=== PATIENT | female | born 1995 | race Caucasian/White ===

== ENCOUNTER 2022-07-11 12:08 | Outpatient (CLI) | payer OTHER, SELFPAY | END 2022-07-11 12:09 | disposition home or self-care (01) | LOC: ANHLAB 12:16 | PROVIDERS: Visit Provider Advanced Practice Midwife | DX: O20.0 Threatened abortion (principal); Z3A.00 Weeks of gestation of pregnancy not specified | CPT/HCPCS: 36415; 84702 ==

== ENCOUNTER 2022-07-13 13:43 | Outpatient (CLI) | payer OTHER, SELFPAY | END 2022-07-13 13:44 | disposition home or self-care (01) | PROVIDERS: Visit Provider Advanced Practice Midwife | DX: O20.0 Threatened abortion (principal); Z3A.00 Weeks of gestation of pregnancy not specified | CPT/HCPCS: 36415; 84702 ==

== ENCOUNTER 2022-12-20 09:06 | Outpatient (CLI) | payer OTHER, SELFPAY ==
[2022-12-20 12:00] LABS: Hematocrit 36.9 % (37.0-47.0); Hemoglobin 12.1 g/dL (12.0-15.0)
[2022-12-20 12:13] LABS: Glucose 1 Hour PP 50gm Dose 107 mg/dL
[2022-12-20 12:51] LABS: HIV 1/2 Ab P24 Ag Result Negative (Negative)
[2022-12-22] MEDS: RHO(D) IMMUNE GLOBULIN 300 MCG/2 ML SYRINGE IM (11:08)
== END 2022-12-20 09:07 | disposition home or self-care (01) ==
LOC: ANHLAB 09:08
PROVIDERS: PCP Physician Assistant Medical; Visit Provider Advanced Practice Midwife
DX: Z36.89 Encounter for other specified antenatal screening (principal); O36.0130 Maternal care for anti-D [Rh] antibodies, third trimester, not applicable or unspecified; Z3A.00 Weeks of gestation of pregnancy not specified
CPT/HCPCS: 36415; 82947; 85014; 85018; 85461; 86703; 86850; 86900; 86901; 90384; 96372; G0432; J2790

== ENCOUNTER 2023-01-22 16:09 | Observation (INO) | payer OTHER, SELFPAY ==
[2023-01-22] VITALS (11 sets, daily range): BP systolic 117–132; BP diastolic 79–86; PULSE 80–89; TEMP 36.8; O2SAT 96–97
--- NOTE | 2023-01-22 16:15 | PC.NURSE ---
Pt. arrives from OB office for Pre-eclampsia workup due to elevated bp in office. G!P0, 33weeks, edc 03/12/23. Pt. report good movement, denies leaking of fluid or bleeding, visual changes noted last friday, hypothyroidism - 125 mcg of synthroid taken daily.
[2023-01-22] MEDS: BETAMETHASONE SOD PHOS/ACETATE 30 MG/5 ML VIAL 12 MG IM (16:38)
[2023-01-22 17:05] LABS: Basophils Percent Auto 0.3 % (0.2-1.2); Eosinophils Absolute Auto 0.5 K/mm3 (0-0.3); Eosinophils Percent Auto 3.5 % (0-4.4); Hemoglobin 10.6 g/dL (12.0-15.0); Immature Granulocyte Absolute 0.12 K/mm3 (0.00-0.031); Immature Granulocyte Percent A 0.8 % (0-0.5); Lymphocytes Absolute Auto 2.38 K/mm3 (0.9-3.2); Lymphocytes Percent Auto 16.9 % (18.3-44.2); Mean Corpuscular HGB Conc 32.1 g/dl (32-36); Mean Corpuscular Hemoglobin 28.8 pg (26-34); Mean Corpuscular Volume 89.7 fl (80-100); Mean Platelet Volume 10.5 fl (7.4-10.4); Monocytes Absolute Auto 1.1 K/mm3 (0.1-0.6); Monocytes Percent Auto 7.4 % (2.6-8.5); Neutrophils Percent Auto 71.1 % (45.5-73.1); Platelet Count Result 326 k/mm3 (150-375); Red Blood Count 3.68 M/mm3 (4.2-5.4); Red Cell Distribution Width 13.4 % (11.5-14.5); White Blood Count 14.1 K/mm3 (4.5-10.0)
[2023-01-22 17:20] LABS: Alanine Aminotransferase 20 U/L (6-35); Albumin Level 3.2 g/dL (3.5-5.1); Alkaline Phosphatase 118 U/L (38-126); Anion Gap 2 mmol/L (8-16); Aspartate Amino Transferase 28 U/L (14-36); Bilirubin,Total 0.3 mg/dL (0.2-1.3); Blood Urea Nitrogen 13 mg/dL (7-17); Calcium 8.7 mg/dL (8.4-10.2); Carbon Dioxide 24 mmol/L (22-30); Chloride 107 mmol/L (98-107); Estimated Glomerular Filt Rate 60; Glucose 108 mg/dL (65-110); Potassium 4.1 mmol/L (3.4-5.0); Sodium 133 mmol/L (137-145); Uric Acid 7.7 mg/dL (2.5-7.5)
--- NOTE | 2023-01-22 17:49 | PC.NURSE ---
Xi PATEL at bedside for evaluation and to discuss plan of care. Strip reviewed by Cnm, moderate variability with 15x15, irregular ctx - not felt, no pain. labs reviewed with meghanam. orders received for discharge with follow up in office this week. Pt also to return to [facility] tomorrow around 1630 for second celestone injection. Pt. acknowledges understanding.
--- NOTE | 2023-01-23 08:04 | P.PNOB_ITS ---
OB - Triage/Final Diagnosis Visit Information Date of evaluation: 01/22/23 Reason for evaluation: other (preeclampsia) Comments/Additional reasons for admission: I have assessed the risk for this patient, Vee Barahona, and determined that she would benefit from observation care. Evaluation Laboratory results: Laboratory Tests 01/22/23 16:25 WBC 14.1 H RBC 3.68 L Hgb 10.6 L Hct 33.0 L MCV 89.7 MCH 28.8 MCHC 32.1 RDW 13.4 Plt Count 326 MPV 10.5 H Immature Gran % (Auto) 0.8 H Neut % (Auto) 71.1 Lymph % (Auto) 16.[address] [place] % (Auto) 7.4 Eos % (Auto) 3.5 Baso % (Auto) 0.3 Lymph # (Auto) 2.38 [place] # (Auto) 1.1 H Eos # (Auto) 0.5 H Baso # (Auto) 0.0 Abs Immat Gran (auto) 0.12 H Absolute Neuts (auto) 10.0 H Absolute Nucleated RBC 0.0 Nucleated RBC % 0.0 Sodium 133 L Potassium 4.1 Chloride 107 Carbon Dioxide 24 Anion Gap 2 L BUN 13 Creatinine 1.10 H Estim Creat Clear Calc Not Reportable Estimated GFR 60 Glucose 108 Uric Acid 7.7 H Calcium 8.7 Total Bilirubin 0.3 AST 28 ALT 20 Alkaline Phosphatase 118 Total Protein 7.0 Albumin 3.2 L Vital signs: Vital Signs - 24 hr 01/22/23 16:15 01/22/23 16:16 01/22/23 16:20 Temperature Pulse Rate 87 86 Blood Pressure 132/82 122/79 Pulse Oximetry 97 96 01/22/23 16:30 01/22/23 16:45 01/22/23 17:00 Temperature Pulse Rate 83 89 89 Blood Pressure 117/86 119/83 126/84 Pulse Oximetry 01/22/23 17:15 01/22/23 17:30 01/22/23 17:45 Temperature Pulse Rate 82 81 80 Blood Pressure 125/85 120/80 124/81 Pulse Oximetry 01/22/23 18:01 01/22/23 17:20 Temperature 36.8 C Pulse Rate 84 Blood Pressure 121/79 Pulse Oximetry
== END 2023-01-22 18:06 | disposition home or self-care (01) ==
LOC: ANHOBOP 16:17 → ANHOBPP 16:17
PROVIDERS: Advanced Practice Midwife; Admitting Provider Obstetrics & Gynecology; PCP Physician Assistant Medical; Visit Provider Obstetrics & Gynecology
DX: O14.93 Unspecified pre-eclampsia, third trimester (principal); Z3A.33 33 weeks gestation of pregnancy; E03.9 Hypothyroidism, unspecified
CPT/HCPCS: 36415; 80053; 84550; 85025; 96372; G0378; G0379; J0702

== ENCOUNTER 2023-01-23 17:24 | Outpatient (CLI) | payer OTHER, SELFPAY ==
--- NOTE | 2023-01-23 17:52 | PC.NURSE ---
Pt here for Celestone, but concerned her BP may be elevated because her cheeks are flushed. BP 126/80.
[2023-01-23] MEDS: BETAMETHASONE SOD PHOS/ACETATE 30 MG/5 ML VIAL 12 MG IM (17:55)
== END 2023-01-23 17:25 | disposition home or self-care (01) ==
LOC: ANHOBOP 17:36
PROVIDERS: PCP Physician Assistant Medical; Visit Provider Obstetrics & Gynecology
DX: Z34.90 Encounter for supervision of normal pregnancy, unspecified, unspecified trimester (principal); Z3A.00 Weeks of gestation of pregnancy not specified
CPT/HCPCS: 96372; J0702

== ENCOUNTER 2023-02-08 10:23 | Inpatient (IN) | payer OTHER, SELFPAY ==
[2023-02-08] VITALS (18 sets, daily range): BP systolic 113–141; BP diastolic 74–103; PULSE 72–88; RESP 16; TEMP 36.6; BMI 39.5; BMI 39.4
--- NOTE | ~2023-02-08 | US_ITS ---
EXAMINATION: US OB limited w BPP DATE: 02/08/2023 18:51 INDICATION: CHRISTIANE and BPP for Preeclampsia and FHR decelerations . TECHNIQUE: Real-time ultrasound of the pelvis was performed. COMPARISON: None. FINDINGS: There is a single living fetus in vertex presentation, longitudinal lie. The placenta is anterior. T he cervix was obscured. heart rate is 132 bpm. The amniotic fluid index is 15 cm, which is norm al (5th to 95th percentile is 7.9 to 24.9 cm). Biophysical profile performed by the technologist: breathing (30 sec sustained breathing in 30 minutes): 2 out of 2. movement (3 gross body movements in 30 minutes: 2 out of 2. tone (one episode of bugmmra-vebtcpqet-yqpmgnk limb movement): 2 out of 2. Amniotic fluid pocket (2 cm): 2 out of 2. Total score: 8 out of 8. IMPRESSION: Single living fetus in vertex presentation. Biophysical profile 8 out of 8. Normal CHRISTIANE. Reviewed, dictated and finalized at location K.
--- NOTE | 2023-02-08 11:57 | PC.NURSE ---
Madhu Barba CNM informed of this 35 3/7 wk pt here for NST's for preeclampsia. Informed of BP's, FHT's 140 and a 3 1/2- 4 min prolonged decel down to 120 noted, and subtle late decels noted at beginning of tracing. Pt denies headache, visual disturbance, epigastric/RUQ pain. 1+ pitting in lower legs. DTR's 1+ and no clonus. Order received for labs. Requested CNM to pull up tracing at home.
--- NOTE | 2023-02-08 12:40 | PC.NURSE ---
Madhu Barba CNM on unit and in to see pt. AMANDA has reviewed monitor tracing and spoke with Dr. Saleh. Pt to stay overnight with monitoring and repeat labs 6 hrs after current labs.
[2023-02-08 13:03] LABS: Basophils Absolute Auto 0.1 K/mm3 (0.0-0.1); Basophils Percent Auto 0.6 % (0.2-1.2); Eosinophils Absolute Auto 0.3 K/mm3 (0-0.3); Eosinophils Percent Auto 2.1 % (0-4.4); Hematocrit 37.3 % (37.0-47.0); Hemoglobin 12.1 g/dL (12.0-15.0); Immature Granulocyte Absolute 0.08 K/mm3 (0.00-0.031); Immature Granulocyte Percent A 0.6 % (0-0.5); Lymphocytes Absolute Auto 2.72 K/mm3 (0.9-3.2); Lymphocytes Percent Auto 20.8 % (18.3-44.2); Mean Corpuscular HGB Conc 32.4 g/dl (32-36); Mean Corpuscular Hemoglobin 28.5 pg (26-34); Mean Corpuscular Volume 87.8 fl (80-100); Mean Platelet Volume 10.6 fl (7.4-10.4); Monocytes Absolute Auto 1.1 K/mm3 (0.1-0.6); Monocytes Percent Auto 8.5 % (2.6-8.5); Neutrophils Absolute Auto 8.8 K/mm3 (1.3-6.7); Neutrophils Percent Auto 67.4 % (45.5-73.1); Platelet Count Result 332 k/mm3 (150-375); Red Blood Count 4.25 M/mm3 (4.2-5.4); Red Cell Distribution Width 14.2 % (11.5-14.5); White Blood Count 13.1 K/mm3 (4.5-10.0)
[2023-02-08 13:11] LABS: Alanine Aminotransferase 12 U/L (6-35); Albumin Level 3.1 g/dL (3.5-5.1); Alkaline Phosphatase 168 U/L (38-126); Anion Gap 5 mmol/L (8-16); Aspartate Amino Transferase 22 U/L (14-36); Bilirubin,Total 0.3 mg/dL (0.2-1.3); Blood Urea Nitrogen 19 mg/dL (7-17); Calcium 8.7 mg/dL (8.4-10.2); Carbon Dioxide 20 mmol/L (22-30); Chloride 109 mmol/L (98-107); Estimated Glomerular Filt Rate 54; Glucose 89 mg/dL (65-110); Potassium 4.4 mmol/L (3.4-5.0); Sodium 134 mmol/L (137-145); Uric Acid 8.8 mg/dL (2.5-7.5)
--- NOTE | 2023-02-08 14:13 | OBADM ---
This patient, Vee Barahona, admitted to the OB room 115 for observation for preeclampsia and FHR decelerations at 35 3/7 wks. Patient/family oriented to hospital policies and general routines including ID bracelet, bed and alarms, visiting hours, pain management, procedures, bathroom and other care routines, personal items, smoking policy, room service/diet, and visiting hours. Patient/Family are encouraged to report perceived risks to care and to ask questions if they do not understand what they are told or what they should do.
[2023-02-08 19:27] LABS: Basophils Absolute Auto 0.1 K/mm3 (0.0-0.1); Basophils Percent Auto 0.7 % (0.2-1.2); Eosinophils Absolute Auto 0.3 K/mm3 (0-0.3); Eosinophils Percent Auto 2.1 % (0-4.4); Hematocrit 39.8 % (37.0-47.0); Hemoglobin 12.6 g/dL (12.0-15.0); Immature Granulocyte Absolute 0.06 K/mm3 (0.00-0.031); Immature Granulocyte Percent A 0.5 % (0-0.5); Lymphocytes Absolute Auto 3.23 K/mm3 (0.9-3.2); Lymphocytes Percent Auto 24.6 % (18.3-44.2); Mean Corpuscular HGB Conc 31.7 g/dl (32-36); Mean Corpuscular Hemoglobin 28.3 pg (26-34); Mean Corpuscular Volume 89.4 fl (80-100); Mean Platelet Volume 10.2 fl (7.4-10.4); Monocytes Absolute Auto 1.1 K/mm3 (0.1-0.6); Monocytes Percent Auto 8.1 % (2.6-8.5); Neutrophils Absolute Auto 8.4 K/mm3 (1.3-6.7); Platelet Count Result 359 k/mm3 (150-375); Red Blood Count 4.45 M/mm3 (4.2-5.4); Red Cell Distribution Width 14.1 % (11.5-14.5); White Blood Count 13.2 K/mm3 (4.5-10.0)
[2023-02-08] MEDS: LACTATED RINGERS 1,000 ML 125 ML IV CONT (19:36)
[2023-02-08 19:37] LABS: Alanine Aminotransferase 13 U/L (6-35); Albumin Level 3.5 g/dL (3.5-5.1); Alkaline Phosphatase 180 U/L (38-126); Anion Gap 4 mmol/L (8-16); Aspartate Amino Transferase 25 U/L (14-36); Bilirubin,Total 0.4 mg/dL (0.2-1.3); Blood Urea Nitrogen 20 mg/dL (7-17); Calcium 9.5 mg/dL (8.4-10.2); Carbon Dioxide 24 mmol/L (22-30); Chloride 106 mmol/L (98-107); Estimated CRCL calculation 58 ml/min; Estimated Glomerular Filt Rate 45; Glucose 90 mg/dL (65-110); Potassium 4.1 mmol/L (3.4-5.0); Sodium 134 mmol/L (137-145); Uric Acid 9.1 mg/dL (2.5-7.5)
--- NOTE | 2023-02-08 22:01 | LDADM ---
This patient, Vee Barahona, was admitted to OB Post 115 on 02/08/23 at 10:23. Plans for labor, pain management and were discussed with patient. Patient/family oriented to hospital policies and general routines including ID bracelet, bed and alarms, visiting hours, pain management, procedures, bathroom and other care routines, personal items, smoking policy, room service/diet and guest tray routines, infant security routines, and visiting hours. Patient/Family are encouraged to report perceived risks to care and to ask questions if they do not understand what they are told or what they should do. See OBIX for further documentation.
[2023-02-09] VITALS (67 sets, daily range): BP systolic 87–136; BP diastolic 35–96; PULSE 68–100; RESP 14–18; TEMP 35.8–36.9; O2SAT 96–100
[2023-02-09] MEDS: LEVOTHYROXINE SODIUM 125 MCG TABLET PO (07:20)
[2023-02-09] MEDS: MULTIVIT/MIN/PREN/FOL AC/IRON TABLET 1 TAB PO (07:21)
[2023-02-09 07:50] LABS: Hematocrit 36.2 % (37.0-47.0); Hemoglobin 11.5 g/dL (12.0-15.0); Mean Corpuscular HGB Conc 31.8 g/dl (32-36); Mean Corpuscular Hemoglobin 28.4 pg (26-34); Mean Corpuscular Volume 89.4 fl (80-100); Mean Platelet Volume 10.2 fl (7.4-10.4); Platelet Count Result 331 k/mm3 (150-375); Red Blood Count 4.05 M/mm3 (4.2-5.4); Red Cell Distribution Width 14.2 % (11.5-14.5); White Blood Count 11.5 K/mm3 (4.5-10.0)
[2023-02-09 07:59] LABS: Alanine Aminotransferase 12 U/L (6-35); Albumin Level 2.9 g/dL (3.5-5.1); Alkaline Phosphatase 157 U/L (38-126); Anion Gap 4 mmol/L (8-16); Aspartate Amino Transferase 21 U/L (14-36); Bilirubin,Total 0.3 mg/dL (0.2-1.3); Blood Urea Nitrogen 22 mg/dL (7-17); Calcium 8.4 mg/dL (8.4-10.2); Carbon Dioxide 22 mmol/L (22-30); Chloride 108 mmol/L (98-107); Estimated CRCL calculation 58 ml/min; Estimated Glomerular Filt Rate 45; Glucose 83 mg/dL (65-110); Potassium 4.3 mmol/L (3.4-5.0); Sodium 134 mmol/L (137-145)
[2023-02-09] MEDS: DINOPROSTONE 10 MG VAG INSERT VAGINAL (08:59)
--- NOTE | 2023-02-09 09:05 | PM.OBPNLAB ---
Pain Control Date/time seen: 02/09/23 09:05 pt was observed overnight, complicated by hypothyroidism, and preeclampsia without severe features. labs stable, blood pressures elevated 120-130/80-90's. heart rate has been 130-140 baseline with occasional late and prolonged decelerations, moderate variability, resolves with position change. pt is having irregular contractions, mild to palpation Pelvic Exam Dilation (cm): 1 Effacement (%): 50 station: -2 Amniotic membrane status: Intact Assessment and Plan Comments: preeclampsia without severe features non reassuring heart rate status discussed with pt and poc reviewed with dr. woodard, co-managing care discussed possible section if needed and pt questions answered pt had betamethasone x 2 last week will proceed with cervidil induction
[2023-02-09] MEDS: AMPICILLIN 2 GM/NS 100 ML 2 GM/100 ML BAG IVPB (09:21)
[2023-02-09] MEDS: LACTATED RINGERS 1,000 ML 125 ML IV CONT ×2 (09:46→11:02)
--- NOTE | 2023-02-09 09:54 | WPDANESEPP ---
Anes - Eval Pre Procedure Procedure: Labor Epidural Date/Time: 02/09/23 09:54 Surgeon: Therese Preop Diagnosis: Labor Pain Pre Op Diagnosis: Pre-eclampsia Patient Data Age: 27 Gender: F Height: 1.55 m Weight: 94.8 kg Last Vital Signs Temp 36.6 C 02/08/23 23:38 Pulse 78 02/09/23 09:46 Resp 16 02/08/23 23:38 BP 129/81 02/09/23 09:46 O2 Del Method Room Air 02/08/23 14:10 Allergies Allergy/AdvReac Type Severity Reaction Status Date / Time No Known Allergies Allergy Verified 01/22/23 16:18 Home Medications Medication Instructions Recorded Confirmed Type vitamin gummie 1 tablet BYMOUTH DAILY 08/30/22 02/08/23 History levothyroxine 125 mcg tablet 125 mcg PO DAILY 12/26/22 02/08/23 History Laboratory Tests 02/08/23 02/08/23 02/08/23 12:53 12:55 19:12 WBC 13.1 H K/mm3 13.2 H K/mm3 (4.5-10.0) (4.5-10.0) RBC 4.25 M/mm3 4.45 M/mm3 (4.2-5.4) (4.2-5.4) Hgb 12.1 g/dL 12.6 g/dL (12.0-15.0) (12.0-15.0) Hct 37.3 % 39.8 % (37.0-47.0) (37.0-47.0) MCV 87.8 fl 89.4 fl (80-100) (80-100) MCH 28.5 pg 28.3 pg (26-34) (26-34) MCHC 32.4 g/dl 31.7 L g/dl (32-36) (32-36) RDW 14.2 % 14.1 % (11.5-14.5) (11.5-14.5) Plt Count 332 k/mm3 359 k/mm3 (150-375) (150-375) MPV 10.6 H fl 10.2 fl (7.4-10.4) (7.4-10.4) Immature Gran % (Auto) 0.6 H % 0.5 % (0-0.5) (0-0.5) Neut % (Auto) 67.4 % 64.0 % (45.5-73.1) (45.5-73.1) Lymph % (Auto) 20.8 % 24.6 % (18.3-44.2) (18.3-44.2) [place] % (Auto) 8.5 % 8.1 % (2.6-8.5) (2.6-8.5) Eos % (Auto) 2.1 % 2.1 % (0-4.4) (0-4.4) Baso % (Auto) 0.6 % 0.7 % (0.2-1.2) (0.2-1.2) Lymph # (Auto) 2.72 K/mm3 3.23 H K/mm3 (0.9-3.2) (0.9-3.2) [place] # (Auto) 1.1 H K/mm3 1.1 H K/mm3 (0.1-0.6) (0.1-0.6) Eos # (Auto) 0.3 K/mm3 0.3 K/mm3 (0-0.3) (0-0.3) Baso # (Auto) 0.1 K/mm3 0.1 K/mm3 (0.0-0.1) (0.0-0.1) Abs Immat Gran (auto) 0.08 H K/mm3 0.06 H K/mm3 (0.00-0.031) (0.00-0.031) Absolute Neuts (auto) 8.8 H K/mm3 8.4 H K/mm3 (1.3-6.7) (1.3-6.7) Absolute Nucleated RBC 0.0 K/mm3 0.0 K/mm3 (0.0-0.012) (0.0-0.012) Nucleated RBC % 0.0 % 0.0 % (0.0-0.2) (0.0-0.2) Sodium 134 L mmol/L 134 L mmol/L (137-145) (137-145) Potassium 4.4 mmol/L 4.1 mmol/L (3.4-5.0) (3.4-5.0) Chloride 109 H mmol/L 106 mmol/L (98-107) (98-107) Carbon Dioxide 20 L mmol/L 24 mmol/L (22-30) (22-30) Anion Gap 5 L mmol/L 4 L mmol/L (8-16) (8-16) BUN 19 H mg/dL 20 H mg/dL (7-17) (7-17) Creatinine 1.20 H mg/dL 1.40 H mg/dL (0.7-1.0) (0.7-1.0) Estim Creat Clear Calc Not Reportable 58 ml/min Estimated GFR 54 L 45 L (59 - ) (59 - ) Glucose 89 mg/dL 90 mg/dL (65-110) (65-110) Uric Acid 8.8 H mg/dL 9.1 H mg/dL (2.5-7.5) (2.5-7.5) Calcium 8.7 mg/dL 9.5 mg/dL (8.4-10.2) (8.4-10.2) Total Bilirubin 0.3 mg/dL 0.4 mg/dL (0.2-1.3) (0.2-1.3) AST 22 U/L 25 U/L (14-36) (14-36) ALT 12 U/L 13 U/L (6-35) (6-35) Alkaline Phosphatase 168 H U/L 180 H U/L (38-126) (38-126) Total Protein 7.0 g/dL 7.0 g/dL (6.3-8.2) (6.3-8.2) Albumin 3.1 L g/dL 3.5 g/dL (3.5-5.1) (3.5-5.1) RPR Blood Type O Negative Antibody Screen Positive Antibody Identification Pending Antigen Identification Pending CHRIS, IgG Interpret Pending CHRIS, Poly Interpret Pending CHRIS, Complement Interp Pending 02/09/23 02/09/23 07:12 07:47 WBC 11.5 H K/mm3 (4.5-10.0) RBC 4.05 L M/mm3 (4.2-5.4) Hgb 11.5 L g/dL (12.0-15.0) Hct 36.2 L % (37.0-47.0) MCV 89.4 fl (80-100) MCH 28.4 pg
[2023-02-09] MEDS: AZITHROMYCIN 500 MG/NS 250 ML 500 MG/250 ML BAG 250 MG IVPB (10:28)
[2023-02-09] MEDS: ceFAZolin 2 GM/D5W 50 ML 2 GM/50 ML BAG IVPB (10:38)
[2023-02-09] MEDS: ONDANSETRON INJ 4 MG/2 ML VIAL IV PUSH (10:45)
--- NOTE | 2023-02-09 10:54 | WPDANESEPPF ---
Anes - Initial Pre Proc Eval Procedure: Operation Date: 02/09/23 10:45 Proposed Procedures p Section - Misbah Saleh MD Date/Time: 02/09/23 10:54 Surgeon: Misbah Saleh MD Pre Op Diagnosis: Pre-eclampsia Patient Data Age: 27 Gender: F Height: 1.55 m Weight: 94.8 kg Last Vital Signs Temp 36.2 C L 02/09/23 10:18 Pulse 79 02/09/23 10:16 Resp 16 02/08/23 23:38 BP 136/93 H 02/09/23 10:16 O2 Del Method Room Air 02/08/23 14:10 Allergies Allergy/AdvReac Type Severity Reaction Status Date / Time No Known Allergies Allergy Verified 01/22/23 16:18 Home Medications Medication Instructions Recorded Confirmed Type vitamin gummie 1 tablet BYMOUTH DAILY 08/30/22 02/08/23 History levothyroxine 125 mcg tablet 125 mcg PO DAILY 12/26/22 02/08/23 History Laboratory Tests 02/08/23 02/08/23 02/08/23 12:53 12:55 19:12 WBC 13.1 H K/mm3 13.2 H K/mm3 (4.5-10.0) (4.5-10.0) RBC 4.25 M/mm3 4.45 M/mm3 (4.2-5.4) (4.2-5.4) Hgb 12.1 g/dL 12.6 g/dL (12.0-15.0) (12.0-15.0) Hct 37.3 % 39.8 % (37.0-47.0) (37.0-47.0) MCV 87.8 fl 89.4 fl (80-100) (80-100) MCH 28.5 pg 28.3 pg (26-34) (26-34) MCHC 32.4 g/dl 31.7 L g/dl (32-36) (32-36) RDW 14.2 % 14.1 % (11.5-14.5) (11.5-14.5) Plt Count 332 k/mm3 359 k/mm3 (150-375) (150-375) MPV 10.6 H fl 10.2 fl (7.4-10.4) (7.4-10.4) Immature Gran % (Auto) 0.6 H % 0.5 % (0-0.5) (0-0.5) Neut % (Auto) 67.4 % 64.0 % (45.5-73.1) (45.5-73.1) Lymph % (Auto) 20.8 % 24.6 % (18.3-44.2) (18.3-44.2) [place] % (Auto) 8.5 % 8.1 % (2.6-8.5) (2.6-8.5) Eos % (Auto) 2.1 % 2.1 % (0-4.4) (0-4.4) Baso % (Auto) 0.6 % 0.7 % (0.2-1.2) (0.2-1.2) Lymph # (Auto) 2.72 K/mm3 3.23 H K/mm3 (0.9-3.2) (0.9-3.2) [place] # (Auto) 1.1 H K/mm3 1.1 H K/mm3 (0.1-0.6) (0.1-0.6) Eos # (Auto) 0.3 K/mm3 0.3 K/mm3 (0-0.3) (0-0.3) Baso # (Auto) 0.1 K/mm3 0.1 K/mm3 (0.0-0.1) (0.0-0.1) Abs Immat Gran (auto) 0.08 H K/mm3 0.06 H K/mm3 (0.00-0.031) (0.00-0.031) Absolute Neuts (auto) 8.8 H K/mm3 8.4 H K/mm3 (1.3-6.7) (1.3-6.7) Absolute Nucleated RBC 0.0 K/mm3 0.0 K/mm3 (0.0-0.012) (0.0-0.012) Nucleated RBC % 0.0 % 0.0 % (0.0-0.2) (0.0-0.2) Sodium 134 L mmol/L 134 L mmol/L (137-145) (137-145) Potassium 4.4 mmol/L 4.1 mmol/L (3.4-5.0) (3.4-5.0) Chloride 109 H mmol/L 106 mmol/L (98-107) (98-107) Carbon Dioxide 20 L mmol/L 24 mmol/L (22-30) (22-30) Anion Gap 5 L mmol/L 4 L mmol/L (8-16) (8-16) BUN 19 H mg/dL 20 H mg/dL (7-17) (7-17) Creatinine 1.20 H mg/dL 1.40 H mg/dL (0.7-1.0) (0.7-1.0) Estim Creat Clear Calc Not Reportable 58 ml/min Estimated GFR 54 L 45 L (59 - ) (59 - ) Glucose 89 mg/dL 90 mg/dL (65-110) (65-110) Uric Acid 8.8 H mg/dL 9.1 H mg/dL (2.5-7.5) (2.5-7.5) Calcium 8.7 mg/dL 9.5 mg/dL (8.4-10.2) (8.4-10.2) Total Bilirubin 0.3 mg/dL 0.4 mg/dL (0.2-1.3) (0.2-1.3) AST 22 U/L 25 U/L (14-36) (14-36) ALT 12 U/L 13 U/L (6-35) (6-35) Alkaline Phosphatase 168 H U/L 180 H U/L (38-126) (38-126) Total Protein 7.0 g/dL 7.0 g/dL (6.3-8.2) (6.3-8.2) Albumin 3.1 L g/dL 3.5 g/dL (3.5-5.1) (3.5-5.1) RPR Blood Type O Negative Antibody Screen Positive Antibody Identification Passive Due to RH Imm Glob Antigen Identification Cancelled CHRIS, IgG Interpret Not Performed CHRIS, Poly Interpret Negative CHRIS, Complement Interp Not Performed 02/09/23 02/09/23 07:12 07:47 WBC 11.5 H K/mm3 (4.5-10.0) RBC 4.05 L M/mm3 (4.2-5.4) Hgb 11.5
--- NOTE | 2023-02-09 11:21 | W.PM.PROC2 ---
Procedure Note - Detailed Date of Procedure 02/09/23 Pre-op Diagnosis Pre-eclampsia, Non- reassuring FHT's Post-op Diagnosis Same Procedure Performed Low-transverse section Surgeon Misbah Saleh MD Anesthesia Spinal Indications During heart tones, preeclampsia Findings Normal gestational maternal anatomy, average size , normal Apgars. Nuchal cord Description of Procedure The patient was taken the operating room. She was prepped and draped in dorsal supine position with a leftward tilt. This was done after spinal anesthetic was applied. A low-transverse skin incision was made and carried down till of the fascia with the knife. The fascial incision was made with the knife. The fascial incision was extended laterally with Barreto scissors. The fascia was tented upward superiorly and inferiorly the rectus muscles were dissected off bluntly. The rectus muscles were the midline. The preperitoneal fat and peritoneum were dissected open bluntly at the superior aspect of the rectus muscles. The peritoneal incision was extended superior and inferior with good position of bladder. The uterine incision was made with a scalpel down to the level of the amniotic cavity. The amniotic cavity was entered bluntly. The infant was delivered. The cord was clamped and cut and the infant was handed off to waiting pediatric staff. Cord bloods were obtained. The placenta was removed manually. The uterus was exteriorized. The uterus was cleared of all clots, debris and membranes. The uterus was closed in 0 Vicryl running lock fashion. An imbricating over a was placed along the incision line as well. The uterus was returned to the abdomen. The gutters were cleared of all clots and debris. The fascia was closed with 0 Vicryl running fashion. The subcutaneous tissue was irrigated pinpoint bleeders were cauterized. The skin was closed with subcuticular absorbable deny. The skin incision line was covered with glue. The patient tolerated the procedure well. She has taken recovery room in stable condition. Sponge lap and needle counts were correct x2. Urine Output 600 Complications No immediate complications Condition Stable Disposition PACU
[2023-02-09] MEDS: OXYTOCIN 30 UNITS/NS 500 ML 30 UNITS/500 ML BAG 125 UNITS IV CONT (13:43)
--- NOTE | 2023-02-09 13:48 | PC.NURSE ---
Patient transferred to post room #284 via stretcher. Support person present. Oriented to unit, room, information board, rooming in, admission packet and security measures. Patient verbalizes understanding.
[2023-02-09] MEDS: KETOROLAC 30 MG/ML VIAL (*BKC) IV PUSH ×2 (14:49→23:49)
[2023-02-09] MEDS: DEXTROSE 5%/0.45% SOD CHL 1,000 ML 125 ML IV CONT (18:05)
[2023-02-09] MEDS: HYDROcodone/acetaminophen (*CRX) 5-325 MG TABLET 1 TAB PO ×2 (18:56→23:48)
[2023-02-09] MEDS: SIMETHICONE 80 MG TAB.CHEW PO (23:49)
[2023-02-10 04:10] VITALS: BP 120/87; PULSE 87; RESP 16; TEMP 36.8; O2SAT 97
[2023-02-10] MEDS: SIMETHICONE 80 MG TAB.CHEW PO ×2 (04:18→14:58)
[2023-02-10] MEDS: HYDROcodone/acetaminophen (*CRX) 5-325 MG TABLET 1 TAB PO ×4 (04:18→20:34)
[2023-02-10 05:04] LABS: Basophils Percent Auto 0.3 % (0.2-1.2); Eosinophils Absolute Auto 0.2 K/mm3 (0-0.3); Eosinophils Percent Auto 1.2 % (0-4.4); Hematocrit 31.3 % (37.0-47.0); Hemoglobin 9.8 g/dL (12.0-15.0); Immature Granulocyte Absolute 0.06 K/mm3 (0.00-0.031); Immature Granulocyte Percent A 0.4 % (0-0.5); Lymphocytes Absolute Auto 2.43 K/mm3 (0.9-3.2); Lymphocytes Percent Auto 16.9 % (18.3-44.2); Mean Corpuscular HGB Conc 31.3 g/dl (32-36); Mean Corpuscular Hemoglobin 28.2 pg (26-34); Mean Corpuscular Volume 89.9 fl (80-100); Mean Platelet Volume 10.3 fl (7.4-10.4); Monocytes Absolute Auto 0.9 K/mm3 (0.1-0.6); Monocytes Percent Auto 5.9 % (2.6-8.5); Neutrophils Absolute Auto 10.9 K/mm3 (1.3-6.7); Neutrophils Percent Auto 75.3 % (45.5-73.1); Platelet Count Result 299 k/mm3 (150-375); Red Blood Count 3.48 M/mm3 (4.2-5.4); Red Cell Distribution Width 14.3 % (11.5-14.5); White Blood Count 14.4 K/mm3 (4.5-10.0)
--- NOTE | 2023-02-10 07:31 | P.PNOB_ITS ---
OB - PN: Subj Subjective Date/time seen: 02/10/23 07:31 Interval history: baby level 2, due to blood sugars pt doing well some incisional soreness, otherwise no complaints flatus present OB - PN: Obj Data Labs 02/10/23 04:22 02/09/23 07:12 Labs: Laboratory Results - last 24 hr 02/08/23 02/09/23 02/10/23 12:53 07:12 04:22 WBC 11.5 H 14.4 H RBC 4.05 L 3.48 L Hgb 11.5 L 9.8 L Hct 36.2 L 31.3 L MCV 89.4 89.9 MCH 28.4 28.2 MCHC 31.8 L 31.3 L RDW 14.2 14.3 Plt Count 331 299 MPV 10.2 10.3 Immature Gran % (Auto) 0.4 Neut % (Auto) 75.3 H Lymph % (Auto) 16.9 L [place] % (Auto) 5.9 Eos % (Auto) 1.2 Baso % (Auto) 0.3 Lymph # (Auto) 2.43 [place] # (Auto) 0.9 H Eos # (Auto) 0.2 Baso # (Auto) 0.0 Abs Immat Gran (auto) 0.06 H Absolute Neuts (auto) 10.9 H Absolute Nucleated RBC 0.0 Nucleated RBC % 0.0 Sodium 134 L Potassium 4.3 Chloride 108 H Carbon Dioxide 22 Anion Gap 4 L BUN 22 H Creatinine 1.40 H Estim Creat Clear Calc 58 Estimated GFR 45 L Glucose 83 Uric Acid 9.0 H Calcium 8.4 Total Bilirubin 0.3 AST 21 ALT 12 Alkaline Phosphatase 157 H Total Protein 6.0 L Albumin 2.9 L Blood Type O Negative Antibody Screen Positive Antibody Identification Passive Due to RH Imm Glob Antigen Identification Cancelled CHRIS, IgG Interpret Not Performed CHRIS, Poly Interpret Negative CHRIS, Complement Interp Not Performed OB - PN A/P Plan day: 1 Plan: routine care Time Spent With Patient Time: Total time spent is greater than 50% in coordination of care (as documented) at patient's floor/unit and/or counseling patient: Review of Systems Review of Systems: All systems reviewed & are unremarkable except as noted in HPI and below Exam 2 Const: General: cooperative, healthy appearing and comfortable Chest: Chest palpation & inspection: normal inspection of the chest Resp: Effort & Inspection: normal respiratory effort Cardio: Rate: regular rate Rhythm: regular rhythm GI: Other: Incision CDI Skin: General skin exam: normal color Neuro: General: patient oriented x3 Extrem: Right lower extremity: normal to inspection Left lower extremity: normal to inspection Psych: Appearance: grossly normal
[2023-02-10 08:10] VITALS: BP 121/89; PULSE 80; RESP 16; TEMP 36.3; O2SAT 100
[2023-02-10] MEDS: MULTIVIT/MIN/PREN/FOL AC/IRON TABLET 1 TAB PO (08:34)
[2023-02-10] MEDS: DOCUSATE SODIUM 100 MG CAPSULE PO ×2 (08:34→14:57)
[2023-02-10] MEDS: POLYSACCHARIDE IRON COMPLEX 150 MG CAPSULE PO ×2 (08:34→17:31)
[2023-02-10] MEDS: IBUPROFEN 600 MG TABLET PO ×3 (08:35→20:34)
--- NOTE | 2023-02-10 10:54 | WPDANLDPN2 ---
Anes-Prog Note L&D Date/Time: 02/10/23 10:54 Comfortable throughout: section Neuraxial method: spinal Epidural/Spinal procedure site: clean & non-tender Neuro status: Neuro function grossly intact. Cardiovascular status: normal Respiratory status: normal Airway patency: baseline Mental status: baseline Post-Op hydration status: normal Vital Signs: Last Vital Signs Temp 36.3 C L 02/10/23 08:10 Pulse 80 02/10/23 08:10 Resp 16 02/10/23 08:10 BP 121/89 02/10/23 08:10 Pulse Ox 100 02/10/23 08:10 O2 Del Method Room Air 02/09/23 13:25 Pain score (VAS): 3 I/O: Intake & Output 02/09/23 02/10/23 02/10/23 23:59 07:59 15:59 Intake Total 1250 1200 800 Output Total 250 1850 Balance 1000 -650 800 Post-procedural complaints: none Patient feedback: Patient satisfied with anesthetic care.
--- NOTE | 2023-02-10 10:55 | WPDANLDNPN2 ---
Anes-Prog Note L&D-Neuraxial Date/Time: 02/10/23 10:55 Neuraxial medications: intrathecal PF morphine Opiod-related complaints: none Patient feedback: Patient satisfied with post-operative pain management.
[2023-02-10 12:00] VITALS: BP 110/76; PULSE 82; RESP 16; TEMP 36.3; O2SAT 99
[2023-02-10 12:40] LABS: Rapid Plasma Reagin Non-Reactive (NonReactive)
[2023-02-10 16:15] VITALS: BP 119/86; PULSE 99; RESP 16; TEMP 36.6; O2SAT 100
[2023-02-10 19:45] VITALS: BP 117/87; PULSE 102; RESP 16; TEMP 36.8; O2SAT 99
[2023-02-11] VITALS: BP 126/93; PULSE 102; RESP 18; TEMP 36.9; O2SAT 100
[2023-02-11] MEDS: HYDROcodone/acetaminophen (*CRX) 5-325 MG TABLET 1 TAB PO ×2 (01:50→07:22)
[2023-02-11 04:00] VITALS: BP 118/88; PULSE 97; RESP 14; TEMP 36.8; O2SAT 100
[2023-02-11] MEDS: POLYSACCHARIDE IRON COMPLEX 150 MG CAPSULE PO (07:22)
[2023-02-11] MEDS: MULTIVIT/MIN/PREN/FOL AC/IRON TABLET 1 TAB PO (07:22)
[2023-02-11] MEDS: IBUPROFEN 600 MG TABLET PO (07:23)
[2023-02-11] MEDS: DOCUSATE SODIUM 100 MG CAPSULE PO (07:23)
[2023-02-11 07:30] VITALS: BP 126/91; PULSE 100; RESP 18; TEMP 37.3
--- NOTE | 2023-02-11 08:15 | PM.OBPNVD ---
OB - PN: Subj Subjective Date/time seen: 02/11/23 08:15 Interval history: baby level 2, due to blood sugars pt doing well some incisional soreness, otherwise no complaints flatus present Patient comments: no complaints, pain well controlled, incisional pain, tolerating diet and flatus present OB - PN: Obj Data Labs 02/10/23 04:22 02/09/23 07:12 Labs: Laboratory Results - last 24 hr 02/09/23 07:47 RPR Non-reactive OB - PN A/P Plan day: 2 Plan: routine care Comments: POD#2 LTCS - no problems, Time Spent With Patient Time: Total time spent is greater than 50% in coordination of care (as documented) at patient's floor/unit and/or counseling patient: Exam Const: General: comfortable, no acute distress and alert Resp: Effort & Inspection: normal respiratory effort Auscultation: no crackles, no rales and no rhonchi Cardio: Rate: regular rate Heart sounds: no click, no murmurs and no rubs GI: Inspection: non-distended Auscultation: normal bowel sounds Other: Incision - CDI Extrem: General: normal to inspection, no pedal edema and no calf tenderness
--- NOTE | 2023-02-11 08:15 | PM.OBDSVD ---
DS: Admitting Diagnosis Discharge Date 02/11/23 Admitting Diagnosis cholestasis of DS: Discharge Diagnosis Discharge Diagnosis (1) Preeclampsia: Code(s): O14.90 - Unspecified pre-eclampsia, unspecified trimester Status: Acute OB - DS: Summary OB Procedures : NST and PIH Mgmt OB Procedures Intrapartum: OB Procedures: : None Peripartum Data Procedures: Procedures Operation Date: 02/09/23 10:45 Actual Procedure Side Surgeon p Section Not Applicable Misbah Saleh MD Time Spent with Patient Time attestation: Total time spent providing and/or coordinating discharge services: DS: Data Data Completed and Pending Pending studies at discharge: Pending at discharge 02/09/23 12:11 Surgical [PTH] Routine Labs on day of discharge: Labs from last 24 hours 02/09/23 07:47 RPR Non-reactive Discharge Plan Discharge Discharging Clinician: Misbah Saleh Patient Disposition: Home, Self-Care Activity: pelvic rest Diet: regular Patient Instructions: Antibiotic Form Stand Alone Forms: General Discharge Information Follow-up/Referrals: Misbah Saleh MD [Physician] - Discharge Medications: New oxycodone-acetaminophen 5-325 mg tablet 1 tablet PO Q4H PRN (Reason: pain) Qty: 25 0RF Continued vitamin gummie 1 tablet BYMOUTH DAILY levothyroxine 125 mcg tablet 125 mcg PO DAILY Date of admission: 02/09/23 07:57 Primary Care Provider: Vita Nixon I. Admitting Provider: Misbah Saleh Attending physician on admission: Misbah Saleh Condition: Stable
[2023-02-12 08:07] VITALS: BP 124/88; PULSE 101; RESP 18; TEMP 37.1; O2SAT 100
--- NOTE | 2023-03-02 21:09 | PM.IMHP ---
H&P: HPI History of Present Illness Date/Time: 03/02/23 21:09 Chief Complaint: nonreassuring heart tones Narrative: 27-year-old female 1 in the 3rd trimester with preeclampsia. Induction of labor has progressed to a point. There is nonreassuring heart heart tones. to proceed with . She understands risk. She understands that injuries may occur that results in hospitalization, more surgery, and severe levels. She understands there is risk of hemorrhage infection. She denies any nausea, vomiting, fever, chills. She denies any chest pain or shortness of breath Review of Systems Review of Systems: All systems reviewed & are unremarkable except as noted in HPI and below Constitutional: Constitutional: Denies chills, Denies fatigue, Denies fever(s) and Denies weakness Eyes: Eyes: Denies blurry vision, Denies change in vision, Denies loss of peripheral vision, Denies loss of vision, Denies other visual disturbances and Denies eye pain ENT: Denies vertigo, Denies dizziness, Denies hearing loss, Denies mouth pain, Denies nasal obstruction, Denies neck mass and Denies neck pain Cardiovascular: Cardiovascular: Denies chest pain, Denies diaphoresis, Denies syncope, Denies leg edema and Denies dyspnea Respiratory: Respiratory: Denies chest congestion, Denies cough, Denies hemoptysis, Denies dyspnea and Denies wheezing Gastrointestinal: Gastrointestinal: Denies abdominal pain, Denies constipation, Denies diarrhea, Denies nausea and Denies vomiting Genitourinary: Genitourinary: Denies hematuria, Denies change in libido, Denies nocturia, Denies genital lesions, Denies flank pain and Denies urinary urgency Musculoskeletal: Musculoskeletal: Denies abnormal gait, Denies back pain, Denies myalgias, Denies arthralgias, Denies joint swelling, Denies muscle weakness and Denies neck pain Integumentary/Breasts: Skin/Breast: Denies swelling, Denies breast pain, Denies breast mass, Denies dry skin, Denies nipple discharge, Denies unusual bruising and Denies jaundice Neurologic: Denies Neuro-related abnormal movements, Denies Abnormal speech present, Denies abnormal gait, Denies behavioral changes, Denies confusion, Denies vertigo, Denies dizziness, Denies syncope, Denies loss of vision, Denies memory loss, Denies convulsions and Denies weakness Psychiatric: Psychiatric: Denies abnormal sleep pattern, Denies behavioral changes, Denies change in libido, Denies confusion, Denies depression, Denies anhedonia and Denies memory loss Endocrine: Endocrine: Reports no additional endocrine complaints, Denies change in libido and Denies fatigue Hematologic/Lymphatic: Hematologic/Lymphatic: Reports no additional hematologic/lymphatic complaints Allergic/Immunologic: Allergic/Immunologic: Reports no additional allergic/immunologic complaints and Denies wheezing PMFSH Past Medical History Medical History Hypothyroidism Periodic health assessment, general screening, adult Surgical History Surgical History No pertinent past surgical history Family History Family History Mother Asthma Thyroid disease Grandparent Cancer Diabetes mellitus Thyroid disease Social History Social History Smoking status: Current every day smoker Tobacco type: e-cigarettes/vaping Second hand tobacco smoke exposure: No Substance use: never Lack of Transportation: No Lack of Food: Never True Current Housing: I Have Housing Concerned About Future Housing: No Difficulty Paying Gas/Electric Bills: No Difficulty Paying for Meds: No Currently Unemployed: No Education: High School Diploma/GED Difficulty w/ Childcare or Family Care: No Living arrangements: with family Occupation/Education: occupation Gender
== END 2023-02-11 10:25 | disposition home or self-care (01) | DRG 788 ==
LOC: ANHLDR 13:28 → ANHOBPP 14:02 → ANHLDR 02-09 08:12 → ANHOB2 02-09 13:50
PROVIDERS: Advanced Practice Midwife; Admitting Provider Obstetrics & Gynecology; PCP Physician Assistant Medical; Visit Provider Obstetrics & Gynecology
PROC: 10D00Z1 Extraction of Products of Conception, Low, Open Approach (ICD-10-PCS; CPT 59514; principal; 2023-02-09 10:45)
DX: O14.94 Unspecified pre-eclampsia, complicating childbirth (principal); Z37.0 Single live birth; Z3A.35 35 weeks gestation of pregnancy; O69.81X0 Labor and delivery complicated by cord around neck, without compression, not applicable or unspecified; O36.8330 Maternal care for abnormalities of the fetal heart rate or rhythm, third trimester, not applicable or unspecified; O99.284 Endocrine, nutritional and metabolic diseases complicating childbirth; E03.9 Hypothyroidism, unspecified
CPT/HCPCS: 36415; 76815; 76819; 80053; 84550; 85025; 85027; 86592; 86850; 86880; 86900; 86901; 86902; 88307; A9270; G0378; G0379; J0290; J0456; J0690; J1885; J2274; J2405; J2590; J7120

== ENCOUNTER 2023-02-08 10:23 | Outpatient (RCR) | payer OTHER, SELFPAY ==
[2023-01-25 11:01] VITALS: BP 120/81
[2023-02-01 07:53] VITALS: BP 128/91; PULSE 81
--- NOTE | 2023-02-08 12:24 | PM.IMHP ---
H&P: HPI History of Present Illness Date/Time: 02/08/23 12:24 Chief Complaint: pt here for an NST for preeclampsia without severe features. currently denies headache, visual changes and epigastric pain. Blood pressures are not severe range. late declerations noted with a prolonged deceleration. CNM at bs to review. currently category 1 with rare contractions Review of Systems Review of Systems: All systems reviewed & are unremarkable except as noted in HPI and below PMFSH Past Medical History Medical History (Updated 02/08/23 @ 12:32 by Xi Barba CNM) Hypothyroidism Periodic health assessment, general screening, adult Surgical History Surgical History (Updated 08/30/22 @ 09:03 by Anne Guadarrama MA) No pertinent past surgical history Family History Family History (Updated 08/30/22 @ 09:06 by Anne Guadarrama MA) Mother Asthma Thyroid disease Grandparent Cancer Diabetes mellitus Thyroid disease Social History Social History (Updated 08/30/22 @ 09:26 by Anne Guadarrama MA) Smoking status: Never smoker Substance use: never Lack of Transportation: No Lack of Food: Never True Current Housing: I Have Housing Concerned About Future Housing: No Difficulty Paying Gas/Electric Bills: No Difficulty Paying for Meds: No Currently Unemployed: No Education: High School Diploma/GED Difficulty w/ Childcare or Family Care: No Living arrangements: with family Occupation/Education: occupation Gender identity (if verbalized by the patient): Female Meds Home Medications and Allergies Home Medications Medication Instructions Recorded Confirmed Type vitamin gummie 1 tablet BYMOUTH DAILY 08/30/22 01/22/23 History levothyroxine 125 mcg tablet 125 mcg PO DAILY 12/26/22 01/22/23 History Allergies Allergy/AdvReac Type Severity Reaction Status Date / Time No Known Allergies Allergy Verified 01/22/23 16:18 Exam Const: General: cooperative Chest: Chest palpation & inspection: normal inspection of the chest Resp: Effort & Inspection: normal respiratory effort Cardio: Rate: regular rate Rhythm: regular rhythm Skin: General skin exam: normal color Neuro: General: patient oriented x3 Extrem: Right lower extremity: edema (2+) Left lower extremity: edema (2+) Assessment and Plan Assessment and plan (1) Preeclampsia: Code(s): O14.90 - Unspecified pre-eclampsia, unspecified trimester Status: Acute Plan 1. preeclampsia without severe features plan to continue to monitor blood pressure repeat labs discussed poc with dr. woodard
== END 2023-03-20 11:26 | disposition home or self-care (01) ==
LOC: ANHOBOP 10:23
PROVIDERS: PCP Physician Assistant Medical; Visit Provider Advanced Practice Midwife
DX: O14.93 Unspecified pre-eclampsia, third trimester (principal); Z3A.33 33 weeks gestation of pregnancy; Z3A.34 34 weeks gestation of pregnancy
CPT/HCPCS: 59025

== ENCOUNTER 2023-02-14 11:00 | Inpatient (IN) | payer OTHER, SELFPAY ==
[2023-02-14 11:15] VITALS: BP 135/91; PULSE 94; TEMP 37; BMI 38.2
--- NOTE | 2023-02-14 11:15 | OBADM ---
This patient, Vee Barahona, admitted to the OB room OB Post 113 for observation. Patient/family oriented to hospital policies and general routines including ID bracelet, bed and alarms, visiting hours, pain management, procedures, bathroom and other care routines, personal items, smoking policy, room service/diet, and visiting hours. Patient/Family are encouraged to report perceived risks to care and to ask questions if they do not understand what they are told or what they should do.
--- NOTE | 2023-02-14 11:56 | PC.NURSE ---
Wound care here to see patient. Plan of care discussed.
--- NOTE | 2023-02-14 12:25 | PC.NURSE ---
Dr Saleh on unit, discussed moving patient to medical floor per Wound care request. agreeable.
--- NOTE | 2023-02-14 13:28 | PC.NURSE ---
Report called to [address] [place] [address]. Keila AGUILAR.
--- NOTE | 2023-02-14 13:43 | PC.NURSE ---
[id number] To [facility].
[2023-02-14 14:00] VITALS: BP 135/82; PULSE 89; RESP 16; TEMP 37.3; O2SAT 98
[2023-02-14 14:30] VITALS: PULSE 89; RESP 16; TEMP 37.3; O2SAT 98
[2023-02-14] MEDS: HYDROmorphone HCL INJ (*CRX) 1 MG/ML SYR IV PUSH (15:08)
[2023-02-14 15:59] VITALS: BMI 38.2
--- NOTE | 2023-02-14 16:01 | ADMGEN ---
This patient, Vee Barahona, was admitted to [facility] Surg Room 328-01 at 1350. Patient/family oriented to hospital policies and general routines including ID bracelet, bed and alarms, visiting hours, pain management, procedures, bathroom and other care routines, personal items, smoking policy, room service/diet, and visiting hours. Information on how to activate the Rapid Response Team has been discussed. Patient/Family are encouraged to report perceived risks to care and to ask questions if they do not understand what they are told or what they should do.
[2023-02-14 19:41] VITALS: PULSE 89; RESP 16; O2SAT 98
[2023-02-14 21:17] VITALS: BP 143/94; PULSE 101; RESP 13; TEMP 36.8; O2SAT 97
[2023-02-14] MEDS: HYDROcodone/acetaminophen (*CRX) 5-325 MG TABLET 1 TAB PO (21:52)
[2023-02-15 05:33] VITALS: BP 133/94; PULSE 86; RESP 12; TEMP 36.2; O2SAT 99
[2023-02-15 09:05] VITALS: BP 128/93; PULSE 97; O2SAT 97
[2023-02-15] MEDS: HYDROcodone/acetaminophen (*CRX) 5-325 MG TABLET 1 TAB PO ×4 (09:09→22:02)
--- NOTE | 2023-02-15 10:08 | PM.IMHP ---
H&P: HPI History of Present Illness Date/Time: 02/15/23 10:08 Chief Complaint: Bleeding at incision site Narrative: this patient is a 27-year-old female who is postop day 5-6 from a delivery. She presented to the office yesterday complaining of bleeding at her incision site. The incision was examined. Add defect in the skin could easily be made in the central portion of the incision. There was hematoma under the skin. The glue was removed. The remainder of the scan could easily be . Willards were cut and the skin was opened entirely. Within the subcutaneous tissue a hematoma around the complete length of the subcutaneous operative space. The clot was removed. The skin was cleaned , as was the wound bed. the defect was packed with wet gauze. It was covered with an ABD. The patient was asked to present to the medical floor for wound care consult. There was no evidence of infection at the incision site. She denies any nausea, vomiting, fever, chills. She denies any chest pain shortness of breath. no tenderness at the incision site Review of Systems Review of Systems: All systems reviewed & are unremarkable except as noted in HPI and below Constitutional: Constitutional: Denies chills, Denies fatigue, Denies fever(s) and Denies weakness Eyes: Eyes: Denies blurry vision, Denies change in vision, Denies loss of peripheral vision, Denies loss of vision, Denies other visual disturbances and Denies eye pain ENT: Denies vertigo, Denies dizziness, Denies hearing loss, Denies mouth pain, Denies nasal obstruction, Denies neck mass and Denies neck pain Cardiovascular: Cardiovascular: Denies chest pain, Denies diaphoresis, Denies syncope, Denies leg edema and Denies dyspnea Respiratory: Respiratory: Denies chest congestion, Denies cough, Denies hemoptysis, Denies dyspnea and Denies wheezing Gastrointestinal: Gastrointestinal: Denies abdominal pain, Denies constipation, Denies diarrhea, Denies nausea and Denies vomiting Genitourinary: Genitourinary: Denies hematuria, Denies change in libido, Denies nocturia, Denies genital lesions, Denies flank pain and Denies urinary urgency Musculoskeletal: Musculoskeletal: Denies abnormal gait, Denies back pain, Denies myalgias, Denies arthralgias, Denies joint swelling, Denies muscle weakness and Denies neck pain Integumentary/Breasts: Skin/Breast: Denies swelling, Denies breast pain, Denies breast mass, Denies dry skin, Denies nipple discharge, Denies unusual bruising and Denies jaundice Neurologic: Denies Neuro-related abnormal movements, Denies Abnormal speech present, Denies abnormal gait, Denies behavioral changes, Denies confusion, Denies vertigo, Denies dizziness, Denies syncope, Denies loss of vision, Denies memory loss, Denies convulsions and Denies weakness Psychiatric: Psychiatric: Denies abnormal sleep pattern, Denies behavioral changes, Denies change in libido, Denies confusion, Denies depression, Denies anhedonia and Denies memory loss Endocrine: Endocrine: Reports no additional endocrine complaints, Denies change in libido and Denies fatigue Hematologic/Lymphatic: Hematologic/Lymphatic: Reports no additional hematologic/lymphatic complaints Allergic/Immunologic: Allergic/Immunologic: Reports no additional allergic/immunologic complaints and Denies wheezing PMFSH Past Medical History Medical History Hypothyroidism Periodic health assessment, general screening, adult Surgical History Surgical History No pertinent past surgical history Family History Family History Mother Asthma Thyroid disease Grandparent Cancer Diabetes mellitus Thyroid disease Social History Social History Smoking status: Former smoker Tobacco type: cigarettes and e-ci
[2023-02-15 13:50] VITALS: BP 129/92
[2023-02-15 14:00] VITALS: BP 129/92; PULSE 101; RESP 14; TEMP 36.7; O2SAT 99
[2023-02-15 21:56] VITALS: BP 130/97; PULSE 81; RESP 20; TEMP 36.8; O2SAT 98
[2023-02-16 06:00] VITALS: BP 117/94; PULSE 82; RESP 20; TEMP 36.4; O2SAT 98
[2023-02-16] MEDS: HYDROcodone/acetaminophen (*CRX) 5-325 MG TABLET 1 TAB PO ×3 (08:07→18:27)
--- NOTE | 2023-02-16 09:53 | PM.OBPNVD ---
OB - PN: Subj Subjective Date/time seen: 02/16/23 09:53 Interval history: no complaints, no problems, no foul-smelling vaginal discharge, no fever, no nausea and no vomiting OB - PN A/P Assessment and Plan (1) Hematoma of surgical wound following section: Code(s): O90.2 - Hematoma of obstetric wound Status: Acute Plan looking to complete the management of the wound VAC and inpatient wound management tomorrow. No other complaints, no other problems, her baby is doing better at the intensive care unit. Time Spent With Patient Time: Total time spent is greater than 50% in coordination of care (as documented) at patient's floor/unit and/or counseling patient: Exam Const: General: cooperative, healthy appearing, comfortable and no acute distress Orientation/consciousness: oriented to person, oriented to place and oriented to time HENMT: Head: normal to inspection Ears: external ears normal Face/Nose/Sinus: Normal external nose present and normal facial exam Face and sinus: normal facial exam Eyes: General: appearance normal, both eyes and all related structures Neck: Neck: normal visual inspection, trachea midline and supple Resp: Auscultation: clear to auscultation bilaterally, no crackles, no rales, no rhonchi and no wheezes Cardio: Rate: regular rate Rhythm: regular rhythm Heart sounds: no click, no murmurs and no rubs GI: GI Palp: No abdominal tenderness, No Soft to palpation, No Tenderness to palpation present (GI) and No Palpable mass present Auscultation: normal bowel sounds Skin: General skin exam: normal color and no rashes or lesions noted Neuro: General: oriented to person, oriented to place and oriented to time Extrem: General: normal to inspection, no joint enlargement, no clubbing, cyanosis or edema, no pedal edema and no calf tenderness Psych: Appearance: grossly normal Mental Status: mental status grossly normal Speech and movement: Normal speech and movement present
[2023-02-16 14:00] VITALS: BP 126/87; PULSE 83; RESP 16; TEMP 36.9; O2SAT 99
[2023-02-16 20:00] VITALS: O2SAT 99
[2023-02-16 21:53] VITALS: BP 130/93; PULSE 93; RESP 16; TEMP 36.7; O2SAT 99
[2023-02-17 05:55] VITALS: BP 128/86; PULSE 95; RESP 18; TEMP 36.6; O2SAT 98
[2023-02-17] MEDS: HYDROcodone/acetaminophen (*CRX) 5-325 MG TABLET 1 TAB PO ×3 (07:07→15:49)
--- NOTE | 2023-02-17 10:33 | PM.OBPNVD ---
OB - PN: Subj Subjective Date/time seen: 02/17/23 10:33 Interval history: no complaints, no problems, no foul-smelling vaginal discharge, no fever, no nausea and no vomiting wound vac in place and pt doing well, awaiting on insurance for follow up coverage so pt can be d/c'd home baby doing well in the NICU OB - PN A/P Assessment and Plan (1) Hematoma of surgical wound following section: Code(s): O90.2 - Hematoma of obstetric wound Status: Acute Assessment and Plan: continue in-patient management pt will be allowed to be discharged home after wound vac arrangements are finalized (2) Post-op pain: Code(s): G89.18 - Other acute postprocedural pain Status: Acute Time Spent With Patient Time: Total time spent is greater than 50% in coordination of care (as documented) at patient's floor/unit and/or counseling patient: Review of Systems Review of Systems: All systems reviewed & are unremarkable except as noted in HPI and below Exam Const: General: cooperative Chest: Chest palpation & inspection: normal inspection of the chest Resp: Effort & Inspection: normal respiratory effort GI: Other: wound vac in place, no drainage, no redness Skin: General skin exam: normal color Neuro: General: patient oriented x3 Extrem: Right lower extremity: normal to inspection Left lower extremity: normal to inspection
[2023-02-17 13:59] VITALS: BP 117/84; PULSE 93; RESP 16; TEMP 36.2; O2SAT 98
[2023-02-17 21:39] VITALS: BP 121/85; PULSE 82; RESP 18; TEMP 36.3; O2SAT 100
[2023-02-18 05:55] VITALS: BP 125/89; PULSE 91; RESP 18; TEMP 36.1; O2SAT 99
--- NOTE | 2023-02-18 13:03 | PM.OBPNVD ---
OB - PN: Subj Subjective Date/time seen: 02/18/23 13:03 no complaints, no problems, no foul-smelling vaginal discharge, no fever, no nausea and no vomiting wound vac in place and pt doing well, awaiting on insurance for follow up coverage so pt can be d/c'd home baby doing well in the NICU Wound care as cleared the patient for discharge. Will discharged directly. Interval history: OB - PN A/P Assessment and Plan (1) Hematoma of surgical wound following section: Code(s): O90.2 - Hematoma of obstetric wound Status: Acute Plan no complaints, no problems, no foul-smelling vaginal discharge, no fever, no nausea and no vomiting wound vac in place and pt doing well, awaiting on insurance for follow up coverage so pt can be d/c'd home baby doing well in the NICU Wound care as cleared the patient for discharge. Will discharged directly. Time Spent With Patient Time: Total time spent is greater than 50% in coordination of care (as documented) at patient's floor/unit and/or counseling patient:
--- NOTE | 2023-02-18 13:06 | PM.DS ---
DS: Admitting Diagnosis Discharge Date February 19, 2020 Admitting Diagnosis Obstetric wound hematoma DS: Discharge Diagnosis Discharge Diagnosis (1) Hematoma of surgical wound following section: Code(s): O90.2 - Hematoma of obstetric wound Status: Acute DS: Summary Hospital Course Reason for hospitalization: 27-year-old female in the period from delivery with subcutaneous hematoma of the surgical wound. Wound was debrided. She was admitted to have wound care evaluation and treatment. She has been afebrile, walking, ambulating, tolerating p.o. and afebrile throughout her stay. She is ready to be discharged. She has completed wound care as an inpatient and has outpatient care arranged. Hospital Course: 27-year-old female in the period from delivery with subcutaneous hematoma of the surgical wound. Wound was debrided. She was admitted to have wound care evaluation and treatment. She has been afebrile, walking, ambulating, tolerating p.o. and afebrile throughout her stay. She is ready to be discharged. She has completed wound care as an inpatient and has outpatient care arranged. Time Spent with Patient Time attestation: Total time spent providing and/or coordinating discharge services: Discharge Plan Discharge Discharging Clinician: Misbah Saleh Patient Disposition: Home, Self-Care Activity: pelvic rest Diet: regular Patient Instructions: Antibiotic Form Stand Alone Forms: General Discharge Information Follow-up/Referrals: Misbah Saleh MD [Physician] - Discharge Medications: Continued vitamin gummie 1 tablet BYMOUTH DAILY oxycodone-acetaminophen 5-325 mg tablet 1 tablet PO Q4H PRN (Reason: pain) Qty: 25 0RF levothyroxine 125 mcg tablet 125 mcg PO DAILY Date of admission: 02/14/23 14:49 Primary Care Provider: Vita Nixon I. Admitting Provider: Misbah Saleh Attending physician on admission: Misbah Saleh Condition: Stable
--- NOTE | 2023-02-18 13:15 | P.HP_ITS ---
H&P: HPI History of Present Illness Date/Time: 02/18/23 13:15 [facility] Past Medical History Medical History Hypothyroidism Periodic health assessment, general screening, adult Surgical History Surgical History No pertinent past surgical history Family History Family History Mother Asthma Thyroid disease Grandparent Cancer Diabetes mellitus Thyroid disease Social History Social History Smoking status: Current every day smoker Tobacco type: e-cigarettes/vaping Second hand tobacco smoke exposure: No Substance use: never Lack of Transportation: No Lack of Food: Never True Current Housing: I Have Housing Concerned About Future Housing: No Difficulty Paying Gas/Electric Bills: No Difficulty Paying for Meds: No Currently Unemployed: No Education: High School Diploma/GED Difficulty w/ Childcare or Family Care: No Living arrangements: with family Occupation/Education: occupation Gender identity (if verbalized by the patient): Female Sexual Orientation (if Verbalized by the Patient): Straight or Heterosexual Spiritual care concerns: No Meds Home Medications and Allergies Home Medications Medication Instructions Recorded Confirmed Type vitamin gummie 1 tablet BYMOUTH DAILY 08/30/22 02/14/23 History levothyroxine 125 mcg tablet 125 mcg PO DAILY 12/26/22 02/14/23 History oxycodone-acetaminophen 5 mg-325 1 tablet PO Q4H PRN pain #25 tabs 02/11/23 02/14/23 Rx mg tablet Allergies Allergy/AdvReac Type Severity Reaction Status Date / Time No Known Allergies Allergy Verified 01/22/23 16:18 Vital Signs Vital Signs - 24 hr 02/17/23 13:59 02/17/23 21:39 02/18/23 05:55 Temperature 97.1 F L 97.4 F L 96.9 F L Pulse Rate 93 82 91 Respiratory Rate 16 18 18 Blood Pressure 117/84 121/85 125/89 Pulse Oximetry 98 100 99
--- NOTE | 2023-02-18 14:06 | PC.NURSE ---
Pt discharged home with . Pt is A&O4. Pt denies pain today. Pt was seen by provider. Wound care changed wound vac to home unit. Pt tolerated well. Pt breast milk returned to pt. Pt compliant with care. Pt expresses no other needs at this time. Pt blood pressure staying WNL. Pt expresses no other needs at this time. Pt walked down to car with . Pt was monitored for any changes in status while here.
== END 2023-02-18 13:25 | disposition home health service (06) | DRG 776 ==
LOC: ANHOBPP 11:04 → ANH3MEDSUR 13:57
PROVIDERS: Admitting Provider Obstetrics & Gynecology; PCP Physician Assistant Medical; Visit Provider Obstetrics & Gynecology
DX: O90.2 Hematoma of obstetric wound (principal); O14.95 Unspecified pre-eclampsia, complicating the puerperium
CPT/HCPCS: A9270; G0378; G0379; J1170